=== PATIENT | male | born 1970 | race Caucasian/White ===

== ENCOUNTER → 2018-12-16 | Day surgery (SDC) | payer OTHER ==
[~2018-12-16] MED LIST: ACETAMINOPHEN 1000 MG/100 ML 100 ML IV ONE; ATORVASTATIN CA20 MG PO; DEXAMETHASONE SOD PHOS INJ 4 MG/ML VIAL ONE; EPINEPHRINE HCL 1:1000 1ML 1 MG/ML AMP ONE; FENTANYL CITRATE/PF 100MCG/2 ML INJ ONE; HYDROMORPHONE 2MG/ML 2 MG/ML ML ONE; LIDOCAINE 1% W/EPINEPHRINE 20 ML VIAL ONE; LIDOCAINE HCL (LTA) 4 ML SOLN ONE; LIDOCAINE HCL 2% JELLY 5 ML TUBE ONE; LIDOCAINE HCL 2% LOCAL INJ 5 ML SDV VIAL INJ ONE; LISINOPRIL10 MG PO; MIDAZOLAM HCL 2 MG/2 ML VIAL ONE; MULTIVITAMINS1 EAC7 PO; ONDANSETRON HCL INJ 2MG/ML 2ML 2 MG/ML VIAL ONE; PROPOFOL IV EMULSION 10 MG/ML 20 ML VIAL ONE; ROCURONIUM BROMIDE 10 MG/ML 5ML VIAL ONE; SEVOFLURANE INHAL SOLN 250 ML PEN BTL ONE; VERAPAMIL ER120 MG PO; vitamin b12; vitamin b6
--- NOTE | 2018-12-16 05:10 | Pre Op History & Physical ---
DATE OF SURGERY: December 16, 2018. CHIEF COMPLAINT: Chronic sinusitis, nasal obstruction. HISTORY OF PRESENT ILLNESS: This is a 48-year-old male, who has a history of nasal obstruction, postnasal drip discharge from his nose. The patient has pressure in the face, worse on the left side since June 2018. The patient has been treated with more than 10 weeks of antibiotics, systemic steroid with no improvement. He also complained of left-sided frontal maxillary pain. He has decreased sense of smell. The patient has postnasal drip and discharge from his nose. He has no epistaxis. The patient had endoscopic sinus surgery in 2000 and also sinuplasty in 2012. A CT scan of paranasal sinuses done recently showed the patient has chronic sinusitis with maxillary sinus complete opacification on the left side and deemed nasal septum to the left. REVIEW OF SYSTEMS: System review showed no recent cardiovascular, respiratory, or GI problem. PAST MEDICAL HISTORY: The patient has a history of hypertension. PAST SURGICAL HISTORY: The patient has previous tonsillectomy, endoscopic sinus surgery, arthroscopic knee surgery on both sides, cervical spine surgery, and sinuplasty. ALLERGIES: HE HAS NO KNOWN ALLERGY TO MEDICATION. MEDICATIONS: He is on atorvastatin, lisinopril. SOCIAL HISTORY: He is a nonsmoker and nondrinker. FAMILY HISTORY: Noncontributory. PHYSICAL EXAMINATION: VITAL SIGNS: On examination, the patient's vital signs were within normal limits. HEENT: Ear exam show normal tympanic membrane bilaterally. Nasal exam showed hypertrophy of inferior turbinates. Oropharynx and oral cavity show no obvious abnormality. NECK: Showed no lymph node or thyroid palpable. CHEST: Showed good air entry bilaterally. CARDIOVASCULAR: Showed S1 and S2. No murmur noted. ASSESSMENT AND PLAN: Mr. Siddiqui has chronic sinusitis, nasal obstruction, which has been resistant to conservative therapy. Suggested treatment is endoscopic sinus surgery, septoplasty, resection of inferior turbinate, and other necessary procedure. Complication of procedure includes, but not limited to bleeding, infection, CSF leak, blindness, double vision, meningitis, septal perforation, septal hematoma, persistent nasal obstruction, persistent nasal crusting, nasal deformity, recurrence of the sinus problem. Alternatives will be continue observation, continue antibiotic therapy, topical nasal steroid therapy, systemic steroid therapy, and decongestant. The patient has elected to undergo surgical procedure. MD MARIO Laws/WILMAR /[id number]
--- OUTSIDE RECORDS SUMMARY | 2018-12-16 10:04 | XMS REPORT | Clinical Summary ---
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 Name Role Phone Wendy Barillas MD PCP Allergies No Known Allergies Medications End Date Status Medication Sig Dispensed Refills Start Date Active testosterone cypionate INJ 0.3 ML IM 0 (DEPOTESTOTERONE TWICE A WEEK 8 CYPIONATE) 200 mg/mL injection Active ibuprofen (ADVIL,MOTRIN) TK 1 T PO TID 0 800 MG tablet PRN 8 Active lisinopril 0 (PRINIVIL,ZESTRIL) 40 mg 8 tablet Active atorvastatin (LIPITOR) 20 0 MG tablet 8 01/29/2018 Discontinued HYDROcodone-acetaminophen TK 1 TO 2 T 0 (NORCO) 5-325 mg per PO Q 6 H PRN 8 tablet P 12/27/2017 Discontinued atorvastatin (LIPITOR) 40 0 MG tablet 8 Active Problems Problem Noted Date Closed fracture of tibial plafond, right 02/14/2018 Fall 11/15/2017 Closed fracture of distal end of right tibia 11/11/2017 Encounters Care Team Description Date Type Specialty Lasha Westbrook MD Closed nondisplaced pilon fracture of right tibia with routine healing, subsequent encounter (Primary Dx) 03/03/2018 Office Visit Orthopedic Surgery Lasha Westbrook MD Closed fracture of tibial plafond, right (Primary Dx); Fall, subsequent encounter; Closed nondisplaced pilon fracture of right tibia with routine healing, subsequent encounter 02/14/2018 Office Visit Orthopedic Surgery Lasha Westbrook MD Closed nondisplaced pilon fracture of right tibia with routine healing, subsequent encounter (Primary Dx) 01/29/2018 Office Visit Orthopedic Surgery Lasha Westbrook MD Closed nondisplaced pilon fracture of right tibia with routine healing, subsequent encounter (Primary Dx); Fall, subsequent encounter 12/27/2017 Office Visit Orthopedic Surgery after 12/15/2017 Family History Medical History Relation Name Comments Cancer Maternal Grandfather Cancer Mother Relation Name Status Comments Maternal Grandfather Mother Social History Date Tobacco Use Types Packs/Day Years Used Never Smoker Smokeless Tobacco: Never Used Alcohol Use Drinks/Week oz/Week Comments Yes 3 Standard drinks or equivalent Sex Assigned at Date Recorded Not on file Industry Job Start Date Occupation Not on file Not on file Not on file Travel End Travel History Travel Start No recent travel history available. Last Filed Vital Signs Time Taken Vital Sign Reading - Blood Pressure - - Pulse - - Temperature - - Respiratory Rate - - Oxygen Saturation - - Inhaled Oxygen - Concentration 03/03/2018 1:02 PM CDT Weight 90.3 kg (199 lb) 03/03/2018 1:02 PM CDT Height 180.3 cm (5' 11") 03/03/2018 1:02 PM CDT Body Mass Index 27.75 Plan of Treatment Health Maintenance Due Date Last Done Comments COLONOSCOPY SCREENING 02/10/2018 SHINGLES VACCINES (#1) 02/10/2018 INFLUENZA VACCINE 01/22/2019 Procedures Comments Procedure Name Priority Date/Time Associated Diagnosis XR ANKLE 3+ VW RIGHT Routine 01/29/2018 Closed nondisplaced pilon 10:47 AM CDT fracture of right tibia with routine healing, subsequent encounter XR ANKLE 3+ VW RIGHT Routine 12/27/2017 Closed nondisplaced pilon 10:43 AM CDT fracture of right tibia with routine healing, subsequent encounter after 12/15/2017 Results * XR Ankle 3+ Vw Right (01/29/2018 10:47 AM CDT) Only the most recent of 2 results within the time period is included. Specimen Narrative Performed At [facility] 3 views of the ankle were examined. The fracture appears to be healing and the fracture line is no longer visible. The patient has some mild narrowing in the lateral aspect of the ankle joint, unchanged from previous x-rays and consistent with mild arthritis Performing Organization Address City/State/[facility] Phone Number [employer] [address] [place] [address] after 12/15/2017 Insurance Type Payer Benefit Subscriber ID Effective Phone Address Plan / Dates Group HMO AETNA AETNA xxxxxxxxxx 2004- HMO,POS,EP Present O, [facility] Advance Directives Patient has advance care planning documents on file. For more information, bob e contact: Thor Walker [address] [place] [address]
[2018-12-16 13:30] VITALS: BP 139/96
--- NOTE | 2018-12-17 15:32 | Operative Report ---
DATE OF PROCEDURE: 12/16/2018 SURGEON: Rashid Clifton MD CHIEF COMPLAINT: Chronic sinusitis with nasal obstruction. POSTOPERATIVE DIAGNOSIS: Chronic sinusitis with nasal obstruction. OPERATIVE PROCEDURES: Bilateral anterior and posterior ethmoidectomy, bilateral maxillary sinus antrostomy, bilateral resection of tissue in maxillary antrum. ANESTHESIA: Anesthesiology group. INDICATIONS: This 48 years old male has history of nasal obstruction, postnasal drip discharge from his nose. He has left facial pain. Nasal obstruction is worse on the left side. On examination, he was noted to have mucopus coming in the left middle meatal area and pus in the nasal cavity on the left side, much more than the right. He also has hypertrophied inferior turbinate on the right side. A CT scan of paranasal sinuses done before surgery showed the patient has chronic sinusitis, involvement of the ethmoid sinuses on both sides worse on the left and maxillary sinus involvement, almost total opacification on the left side, and involvement of the maxillary sinus to a lesser extent on the right side. The patient's condition has been treated with more than 8-10 weeks of topical nasal steroid, decongestant, antibiotics since July of this year with no improvement of the condition. The patient had previous sinuplasty and endoscopic sinus surgery more than a few years ago. It was decided that endoscopic sinus surgery and other necessary procedure will be beneficial for him. DESCRIPTION OF PROCEDURE: The patient was taken to operating room, put under general anesthesia, endotracheally intubated. The nose was injected with 1% Xylocaine with 1:100,000 epinephrine for hemostasis. Epinephrine-soaked pledget was inserted into the nose and subsequently removed. The left paranasal sinuses were approached first. The middle turbinate was medialized. Inspissated pus and congealed crusting was noted in the middle meatal area coming into the nasal cavity. These were removed with some difficulty in a piecemeal fashion. Both the anterior and posterior ethmoid sinuses were noted to have marked amount of inflamed mucosa much worse than what the CT scan show. Using the micro shaver, the anterior and posterior ethmoid sinuses were dissected in a systematic fashion. Care was taken during dissection to ascertain that the orbit was not entered. The maxillary antrum on the left side was noted to be completely filled up with crusting material, which seems like inspissated pus. This was removed with combination of microdebrider, irrigation with saline and also with up-biting [place]. The maxillary antrum was re-examined using a 45 degree and subsequently a 70 degree telescope to ascertain that all the infected material and inflamed tissue were removed from the maxillary sinus. The mucosa in the maxillary sinus was shaved down using 120 degree tip of the micro shaver. The material that was removed was sent for anaerobic, aerobic, AFB, and fungal culture and also sent for pathology. The right paranasal sinuses were approached. The middle turbinate was medialized. The inflamed tissue was noted in both the anterior and posterior ethmoid sinus area. This again was worse than what the CT scan has shown although the right side inflammation was not as severe as the left. Using a microdebrider, the anterior and posterior ethmoid sinuses were dissected in a systematic fashion. Care was taken during dissection to ascertain that orbit was not entered. The maxillary antrum was examined and inflamed tissue was noted in the maxillary antrum on the right side. Using a 45 degree telescope, the maxillary antrum was dissected using 130 degree tip of the micro shaver. NasoPore was inserted in the sinus cavities on either side. This was done to prevent synechiae formation and for hemostasis. The patient tolerated the above procedure well with an estimated blood loss about 40-50 mL. He was given 20 mg of Decadron intraoperatively. The stomach was suctioned out at the end of procedure. The patient was able to be transferred to recovery room in stable condition. MD MARIO Laws/WILMAR /[id number]
== END | disposition home or self-care (01) ==
LOC: OR 10:01
PROVIDERS: ATTEND Otolaryngology Otolaryngology/Facial Plastic Surgery
DX: J32.0 Chronic maxillary sinusitis (principal); J34.89 Other specified disorders of nose and nasal sinuses; I10 Essential (primary) hypertension; E78.5 Hyperlipidemia, unspecified
CPT/HCPCS: 31255; 31267; 87071; 87075; 87186; 87205; 88305; 88312; 93005; J0131; J0171; J1100; J1170; J2001 ×2; J2250; J2405; J2704; 88304; J3010